=== PATIENT | female | born 2000 | race Caucasian/White ===

== ENCOUNTER 2022-01-07 16:47 | Outpatient (CLI) | payer OTHER, SELFPAY | END 2022-01-07 23:59 | disposition home or self-care (01) | LOC: LABSPEC 16:49 | PROVIDERS: PCP Orthopaedic Surgery; Visit Provider Obstetrics & Gynecology | DX: N89.8 Other specified noninflammatory disorders of vagina (principal) | CPT/HCPCS: 87070; 87205 ==

== ENCOUNTER → 2023-06-21 | Outpatient (CLI) | payer OTHER, SELFPAY ==
[2023-06-21 11:19] LABS: HIV - WCH Non-Reactive (Nonreactive); Hepatitis C Antibody Non-Reactive (Nonreactive); Syphilis Antibodies Non-reactive
[2023-06-22 05:07] LABS: HSV 1 IgG < 0.91 index (0.00-0.90); HSV 2 IgG < 0.91 index (0.00-0.90)
[2023-06-23 12:09] LABS: Chlamydia By Nucleic Acid AMP Negative (Negative); Gonococcus By Nucleic Acid AMP Negative (Negative)
[2023-06-26 21:05] LABS: HPV Reflexed? NOT INDICATED
== END | disposition home or self-care (01) ==
PROVIDERS: PCP Orthopaedic Surgery; Referring Provider Nurse Practitioner Women's Health; Visit Provider Nurse Practitioner Women's Health
DX: Z12.4 Encounter for screening for malignant neoplasm of cervix (principal); Z11.3 Encounter for screening for infections with a predominantly sexual mode of transmission; N89.8 Other specified noninflammatory disorders of vagina; Z20.2 Contact with and (suspected) exposure to infections with a predominantly sexual mode of transmission
CPT/HCPCS: 36415; 86695; 86696; 86703; 86780; 86803; 87070; 87205; 87491; 87591; 88175; G0145

== ENCOUNTER → 2025-06-05 | Outpatient (CLI) | payer OTHER, SELFPAY ==
[2025-06-05 17:13] LABS: hCG Titer Quant., Serum < 1 mIU/mL (<9 non-preg)
== END | disposition home or self-care (01) ==
PROVIDERS: PCP Orthopaedic Surgery; Visit Provider Nurse Practitioner Family
DX: N91.2 Amenorrhea, unspecified (principal)
CPT/HCPCS: 36415; 84702

== ENCOUNTER → 2025-07-01 | Outpatient (CLI) | payer OTHER, SELFPAY ==
--- NOTE | 2025-07-01 08:47 | US_ITS ---
EXAM: Right axillary sonogram. CLINICAL HISTORY: Occasional right axillary lump. COMPARISON: None TECHNIQUE: Targeted imaging of the right axilla was obtained. FINDINGS: No sonographic abnormality is seen. US/Axilla - Right IMPRESSION: No sonographic abnormality is seen. Reading Location: [facility]
--- OUTSIDE RECORDS SUMMARY | 2025-07-01 10:02 | XMS RPT_ITS | CCD ---
Author Organization 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 Rahul Pickett Primary Care Provider Dr. Rahul Pickett Referring Provider Javon RETAIL ZONE SPECIALIST, RETAIL ZONE SPECIALIST-C Loni Attending Provider Chelsea Burr MD Primary Care Provider OLARIU, NICULINA R Attending Unavailable OLARIU, NICULINA R Primary Care Unavailable SINTIA JAMISON Attending Unavailable OLARIU, NICULINA R Referring Unavailable OLARIU, NICULINA R Primary Care Unavailable OLARIU, NICULINA R Attending Unavailable OLARIU, NICULINA R Primary Care Unavailable Dr. Rahul Pickett MD Primary Care Provider Dr. Rahul Pickett MD Referring Provider Jessica RETAIL ZONE SPECIALIST-CAmrita Attending Provider Rahul Pickett Primary Care Unavailable Amrita Lopez Attending Unavailable Amrita Lopez Referring Unavailable Town Doctor, Out of Primary Care Unavailable Amrita Lopez Attending Unavailable Amrita Lopez Referring Unavailable [facility] Doctor, Out of Primary Care Unavailable Amrita Lopez Attending Unavailable Amrita Lopez Attending Unavailable Rahul Pickett Primary Care Unavailable Rahul Pickett Referring Unavailable Allergies Allergy Classification Reported Allergen(s) Allergy Type Date of Onset Reaction(s) Facility (1 source) ALLERGIES NOT ON FILE; Translations: [ALLERGIES NOT ON FILE] Propensity to adverse reactions (disorder) [facility] Medications Current Medications Medication Drug Class(es) Dates Sig (Normalized) Sig (Original) cholecalciferol 0.125 mg oral tablet (1 source) Vitamin D cholecalciferol (Vitamin D3) 125 mcg (5,000 units) tablet Take by mouth once daily. Active ergocalciferol 1.25 mg oral capsule (1 source) Provitamin D2 Compound Start: 05-08-2025 End: 06-19-2025 take 1 capsule by mouth every week ergocalciferol (Vitamin D-2) 1250 mcg (50,000 units) capsule Indications: Vitamin D deficiency Take 1 capsule (1.25 mg) by mouth 1 (one) time per week. 6 capsule 05/08/2025 06/19/2025 Active 168 hr ethinyl estradiol 0.82680 mg/hr / norelgestromin 0.08361 mg/hr transdermal system (12 sources) Progestin, Estrogen Start: 06-09-2025 apply 1 dose transdermal route every week Norelgestromin-Ethin .Estradiol (Xulane) 150-35 mcg/24 hr patch weekly Active 1 NMA TD Q7D 12 June 09, 2025 7:08am one patch td weekly, use continuously Start: 01-07-2022 End: 06-05-2025 apply 1 dose transdermal route every week Norelgestromin-Ethin.Estradiol (Xulane) 150-35 mcg/24 hr patch weekly Discontinued 1 NMA TD Q7D 12 April 05, 2024 3:20am June 05, 2025 3:24pm one patch td weekly, use continuously Start: 01-07-2022 End: 06-21-2023 apply 1 dose transdermal route every week Norelgestromin-Ethin.Estradiol (Xulane) 150-35 mcg/24 hr patch weekly Active 1 PATCH TD Q7D June 21, 2023 9:35am one patch td weekly, use continuously Beauregard (Nk) (2 sources) Start: 06-05-2025 Beauregard (Nk) A ctive June 05, 2025 12:00am tirzepatide, weight loss, (Zepbound) 2.5 mg/0.5 mL injection (1 source) Start: 05-08-2025 tirzepatide, w eight loss, (Zepbound) 2.5 mg/0.5 mL injection Indications: Obesity (BMI 35.0-39.9 without comorbidity) Inject 2.5 mg under the skin every 7 days. 4 each 1 05/08/2025 Active Completed/Discontinued Medications Medication Drug Class(es) Dates Sig (Normalized) Sig (Original) clindamycin 20 mg/ml vaginal cream (2 sources) Lincosamide Antibacterial Start: 09-11-2023 End: 2023 Clindamycin Phosphate (Cleocin) 2 % cream Discontinued 1 NMA VAGINAL AT BEDTIME 40 5 0 September 11, 2023 12:00am September 15, 2023 12:00am 2023 12:38am etonogestrel 68 mg drug implant (3 sources) Progestin Start: 12-19-2018 End: 01-10-2022 Etonogestrel (Nexplanon) 68 mg implant Discontinued 1 NMA Subdermal ONCE December 19, 2018 1:00am January 10, 2022 10:02am metroNIDAZOLE 500 mg oral tablet (6 sources) Nitroimidazole Antimicrobial Start: 06-26-2023 End: 07-03-2023 take 1 tablet by mouth twice daily Metronidazole 500 mg tablet Discontinued 500 mg PO TWICE A DAY 14 7 0 June 26, 2023 12:00am July 02, 2023 12:00am July 03, 2023 12:03am Start: 01-10-2022 End: 01-17-2022 take 1 tablet by mouth twice daily Metronidazole 500 mg tablet Discontinued 500 mg PO TWICE A DAY 14 7 0 January 10, 2022 1:00am January 16, 2022 1:00am January 17, 2022 1:03am Problems Active Problems Problem Classification Problem Date Documented Date Episodic/Chronic Anxiety disorders (6 sources) Mixed anxiety and depressive disorder; Translations: [Anxiety disorder, unspecified] Onset: 04-09-2025 04-09-2025 Chronic Contraceptive and procreative management (1 source) Encounter for contraceptive management, unspecified; Translations: [Encounter for contraceptive management, unspecified] Onset: 06-05-2025 Episodic Immunizations and screening for infectious disease (1 source) Contact with and (suspected) exposure to infections with a predominantly sexual mode of transmission; Translations: [Contact with or exposure to venereal diseases] 06-21-2023 Episodic Menstrual disorders (3 sources) Break-through bleeding; Translations: [Excessive and frequent menstruation with irregular cycle] Onset: 04-09-2025 04-09-2025 Chronic Mood disorders (7 sources) Mild major depression, single episode; Translations: [Major depressive disorder, single episode, mild] Onset: 04-09-2025 04-09-2025 Chronic Mood disorders (4 sources) Mood disorders; Translations: [Depression, unspecified] Onset: 04-09-2025 04-09-2025 Nonmalignant breast conditions (6 sources) Breast lump; Translations: [Unspecified lump in unspecified breast] Onset: 06-05-2025 06-05-2025 Episodic Comment on above: axillary Nutritional deficiencies (4 sources) Vitamin D deficiency; Translations: [Vitamin D deficiency, unspecified] Onset: 05-08-2025 05-08-2025 Chronic Other female genital disorders (1 source) Other specified noninflammatory disorders of vagina; Translations: [Other specified symptoms associated with female genital organs] 06-21-2023 Episodic Other female genital disorders (2 sources) Vaginal odor; Translations: [Other specified noninflammatory disorders of vagina] Onset: 04-09-2025 04-09-2025 Episodic Other nutritional; endocrine; and metabolic disorders (5 sources) Body mass index 30+ - obesity; Translations: [Obesity, unspecified] Onset: 04-09-2025 04-09-2025 Chronic Other nutritional; endocrine; and metabolic disorders (2 sources) Obesity, unspecified; Translations: [Obesity, unspecified] Onset: 04-09-2025 Chronic Other screening for suspected conditions (not mental disorders or infectious disease) (7 sources) Encounter for screening for malignant neoplasm of cervix; Translations: [Screening for malignant neoplasms of cervix] Onset: 05-08-2025 06-21-2023 Episodic Past or Other Problems Problem Classification Problem Date Documented Da te Episodic/Chronic Unclassified (2 sources) Onset: 04-09-2025 Resolved: 05-08-2025 04-09-2025 Viral infection (2 sources) Varicella; Translations: [Varicella without complication] Onset: 11-20-2002 04-09-2025 Episodic Results Test Name Value Interpretation Reference Range Facility Laboratory - Chemistry and C hemistry - challengeOrdered By: Amrita Lopez on 06-05-2025 HCG ( test) Ql (U) Negative [facility] Trimming Assembler Office Visit Reporton 07-17-2025 Trimming Assembler Office Visit Report [facility] [address], [address] [place] [address] OFFICE VISIT Date of Service: 06/05/25 MR#: [id number] Acct: [id number] Name: PANKAJ QUIÑONEZ Rep #: [id number] : 2000 Provider: BERTHA Oliver Age/Sex: 24/F Location[place] [facility] [place]: Signed Intake Vital Signs 06/21/23 09:29 06/05/25 15:18 06/05/25 15:25 Height 5 ft 5 in 5 ft 5 in 5 ft 5 in Weight: 228 lb 6 oz BMI 38.0 BP 102/78 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: No Is patient in pain?: No Allergies No Known Allergies Allergy (Verified 06/05/25 15:17) Medications ???Medication ???Instructions ???Recorded ???Confirmed ???Type NK 06/05/25 06/05/25 History Is last menstrual period known: No Post menopausal: No Patient : No : No Control Method: none PFSH Family History Father Diabetes Social History (Updated 06/05/25 @ 15:24 by Mirtha Beach) adopted: No number of children: 0 current occupational status: employed 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 She was previously on xulane patch; has not had refills due to her pharmacy closing. She is interested in restarting the xulane patient. She has however had unprotected since being off. When she was using the xulane patch her menses were regular--with out the patch is has been irregular. Patient reports breast lump; noticed this a couple weeks ago in right axillary region. Last PAP: 2022; normal. History of abnormal PAP: no Last mammogram: age 40 History of abnormal mammogram: n/a Colon cancer screening: age 45 Other preventative health care screenings: Chelsea Burr--Kenna; PCP Female Reproductive History Last Menstrual Period: 03/26/25 Questions: metorrhagia: No, sexually active: Yes, dyspareunia: No and PCB: No ROS Const Constitutional: Denies chills, fatigue, fever(s), headache(s) or weight loss Eyes Eyes: Denies change in vision ENT ENT: Denies dizziness Resp Resp: Denies cough GI GI: Denies abdominal pain, constipation or nausea : Denies difficulty voiding, dysuria, hematuria, nipple discharge, pelvic pain, prolapse symptoms, urinary incontinence, vaginal discharge, vaginal dryness, vaginal odor or vaginal pruritus Skin Skin/Breast: Denies alopecia, rash, breast mass, breast pain, breast skin changes or nipple discharge Neuro Neuro: Denies dizziness Psych Psych: Denies anxiety or depression Endo Endo: Denies cold intolerance, excessive sweating or heat intolerance Exam Const General: cooperative, healthy appearing, no acute distress and well developed Orientation: alert, oriented to person and oriented to place HENCT Head: normal to inspection Neck Neck: normal visual inspection Thyroid: thyroid normal Lymphatic: no lymphadenopathy noted Chest Breast inspection: normal inspection of the breasts and normal inspection of the axillae Breast palpation: normal palpation of the breasts, normal palpation of the axillae and no axillary lymphadenopathy Resp Effort Inspection: normal respiratory effort GI Palpation: soft, no masses and nontender Rectal Exam: deferred External Female Exam: normal external appearance and normal appearance of the urethra Urethra: normal appearance of the urethra and normal palpation Speculum Exam - Vagina: normal appearance of the vagina and normal vaginal discharge Speculum Exam - Cervix: normal appearance of the cervix Bimanual Exam- Vagina Uterus: normal bimanual exam, uterine size normal, uterine shape normal and non-tender Bimanual Exam- Adnexa, other: normal adnexae, no masses, normal and non-tender Pelvic Support: normal Neuro General: patient alert and patient oriented x3 Psych Affect: normal affect Results POC Urine Office , Urine Negative Last Edit by Mirtha Beach on 06/05/25 15:28 Coding Level of Care Code Established Pt Off vis,est,prev 18-39yrs Patient Type Established Diagnoses Encounter for routine gynecological examination Z01.419 Breast lump N63.0 Assessment and Plan Assessment and Plan (1) Encounter for routi (more content not included)... Normal [facility] Serum human chorionic gonado tropin detection for pregnancyOrdered By: Amrita Lopez on 06-05-2025 HCG ( test) Ql < 1 mIU/mL <9 [facility] Comment on above: Gestational Age0.2-1 Week: 5-50 mIU/mL1-2 Weeks: 50-500 mIU/mL2-3 Weeks: 100-5000 mIU/mL3-4 Weeks: 500-10,000 mIU/mL4-5 Weeks:1000-50,000 mIU/mL5-6 Weeks: 10,000-100,000 mIU/mL6-8 Weeks: 15,000-200,000 mIU/mL2-3 Months:10,000-100,000 mIU/mL hCG Titer Quant., Serumon HCG QUANT. < 1 Normal <9 non-preg [facility] Comment on above: Result Comment: Gest ational Age 0.2-1 Week: 5-50 mIU/mL 1-2 Weeks: 50-500 mIU/mL 2-3 Weeks: 100-5000 mIU/mL 3-4 Weeks: 500-10,000 mIU/mL 4-5 Weeks:1000-50,000 mIU/mL 5-6 Weeks: 10,000-100,000 mIU/mL 6-8 Weeks: 15,000-200,000 mIU/mL 2-3 Months:10,000-100,000 mIU/mL Performed By: #### L 700.8000 #### [facility] [address] [place], [place], [id number] Cervical or vagninal specime n microscopic examination by cytology stain (reported asOrdered By: Loni Alejandro on 06-21-2023 Cytology report Cyto stain Doc (Cvx/Vag) Comment . [facility] Comment on above: The Pap smear is a s creening test designed to aid in thedetection of premalignant and malignant conditions of theuterine cervix. It is not a diagnostic procedure andshould not be used as the sole means of detecting cervicalcancer. Both false-positive and false-negative reports dooccur. Chlamydia trachomatis rRNA d etection by probe and target amplification methodOrdered By: Loni Alejandro on 06-21-2023 C. trachomatis rRNA ABIGAIL+probe Ql (Unsp spec) Negative Negative [facility] Gram stain for investigation of transfusion reactionOrdered By: Loni Alejandro on 06-21-2023 Microscopic observation Gram stain Nom (Unsp spec) [facility] HIV 1 and HIV-2 antibody ass ay with HIV-1 p24 antigen detectionOrdered By: Loni Alejandro on 06-21-2023 HIV 1+2 Ab+HIV1 p24 Ag IA Ql Non-Reactive Nonreactive [facility] Laboratory - CytologyOrdered By: Loni Alejandro on 06-21-2023 Consumer Insight Analyst Cyto stain Nom (Cvx/Vag) [ID] Comment . [facility] Comment on above: Marycarmen Castellano, Cytot echnologist (ASCP) Laboratory - Microbiology an d Antimicrobial susceptibilityOrdered By: Loni Alejandro on 06-21-2023 N. gonorrhoeae DNA ABIGAIL+probe Ql (Unsp spec) Negative Negative [facility] Comment on above: Performed at: =G - [facility] [address] [id number] Director: Gabbi Merritt MD, Phone: [phone] Laboratory - Miscellaneous t estsOrdered By: Loni Alejandro on 06-21-2023 Service comment (Unsp spec) [Interp] Comment . [facility] Comment on above: This liquid based Th inPrep(R) pap test was screened withthe use of an image guided system. Service comment (Unsp spec) [Interp] . . [facility] No Panel InformationOrdered By: Loni Alejandro on 06-21-2023 Human Papillomavirus Screen Comment . [facility] Comment on above: The HPV DNA reflex c teodora were not met with this specimenresult therefore, no HPV testing was performed.Performed at: - [facility] [address] [id number] Director: Gabbi Merritt MD, Phone: [phone] Pathology report final diagnosis Narrative Comment . [facility] Comment on above: NEGATIVE FOR INTRAEP ITHELIAL LESION OR MALIGNANCY. Hepatitis C Antibody Non-Reactive Nonreactive [facility] Comment on above: Non Reactive: < 0.8 Equivocal: >/= 0.8 to < 1.0 Reactive: >/= 1.0The CDC recommends that a reactive/equivocal HCV antibody result be followed up by the HCV Nucleic Acid Amplificationtest (010407) Herpes Simplex Virus I IgG Antibody < 0.91 index 0.00-0.90 [facility] Comment on above: Negative <0.91 Equiv ocal 0.91 - 1.09 Positive >1.09 Note: Negative indicates no antibodies detected to HSV-1. Equivocal may suggest early infection. If clinically appropriate, retest at later date. Positive indicates antibodies detected to HSV-1. Serum Treponema species anti body detectionOrdered By: Loni Alejandro on 06-21-2023 Treponema sp Ab Ql (S) Non-Reactive [facility] Serum herpes simplex virus 2 antibody assay by immunoassay (units/volume)Ordered By: Loni Alejandro on 06-21-2023 HSV 2 Ab IA Qn (S) < 0.91 index 0.00-0.90 [facility] Comment on above: Negative <0.91 Equiv ocal 0.91 - 1.09 Positive >1.09 Note: Negative indicates no HSV-2 antibodies detected. Positive indicates HSV-2 antibodies detected. Equivocal and low positive HSV-2 screens (Index 0.91-5.00) may be false positive and are reflexed to supplemental testing in accordance with CDC guidelines.Performed at: [facility] [id number] Director: Morteza Adorno PhD, Phone: [phone] Thin prep Papanicolaou smear with manual screeningOrdered By: Loni Alejandro on 06-21-2023 Genital Culture Gardnerella vaginalis [facility] C. trachomatis/GC PCR Panel on GeneXperton 03-12-2021 C. trachomatis/GC PCR Panel on GeneXpert Reason for preventing automatic release->Other Is this specimen being sent to an external lab?->No Release to patient->Manual release only 60354&Urine-First Void^^^Urine&Urine C. trachomatis PCR on GeneXpert: NEGATIVE-Chlamydia trachomatis DNA: NOT DETECTED. Source: [facility] Collected: 03/12/21 14:33 Site: Urine Received : 03/12/21 20:20 C. trachomatis PCR on GeneXpert FINAL 03/13/21 10:24 NEGATIVE-Chlamydia trachomatis DNA: NOT DETECTED. - GC PCR on GeneXpert FINAL 03/13/21 10:24 NEGATIVE-Neisseria gonorrhea DNA: NOT DETECTED. - Method: DNA detection by RT PCR on a GeneXpert analyzer. - NOTE: This Amplified DNA Assay should not be used for the evaluation of suspected sexual abuse or for other medico-legal indications. - Screening urine specimens for Chlamydia trachomatis and Neisseria gonorrhoeae using nucleic acid amplification is an accurate and sensitive method compared to standard techniques of detection of these pathogens. Because the pathogen is diluted in urine, it is somewhat less sensitive than a direct swab specimen evaluated by nucleic acid amplification techniques. Normal [facility] Comment on above: Performed By: #### C [facility] #### [place] [address] Progress Noteon 03-12-2021 Research Psychologist Authentication Interface Message Text Patient ID: Pankaj Quiñonez V is a 20 y.o. female. Her chief complaint(s) include: Urinary Frequency (has been ongoing, happens a lot if she doesnt urinate after sex, seen clinic at [facility], no bacteria. taking AZO otc. no burning. is spotting if there is blood in urine sample.) and Immunizations Assessment 1. Dysuria 2. Symptoms involving urinary system Plan Pankaj was seen today for urinary frequency and immunizations. Diagnoses and all orders for this visit: Dysuria - Cancel: POCT urinalysis dipstick - POCT urine HCG - Urine culture - C.trachomatis/GC PCR Panel Symptoms involving urinary system - POCT urinalysis dipstick Return for Well Visit and as needed. Will send urine for culture and G & C. Will determine follow up after results available. Discussed if all negative testing if symptoms persist will refer to urology. Encouraged Pankaj to call with any concerns. Subjective HPI Comments: Frequency urgency tingling feeling with voiding; has been happening since Monday. Monday urine culture negative for UTI. No G/C testing completed. No condom use. Partner does not have symptoms. She is accompanied by her mother. Independent history obtained from mother. Dysuria The onset has been acute. The duration has been 6 days. The pattern is persistent. The course is improving. The patient's symptoms have included change in urine color, urinary frequency, urinary hesitancy and urinary urgency. The patient's symptoms have included no chills, no fever, no nausea, no vomiting, no change in urine odor, no decreased urination and no urinary burning. Weight loss: urine was cloudy on Monday. The contributing factors have included sexual activity. The contributing factors have not included increased fluid intake. The patient's past medical history is positive for vesicoureteral reflux and urinary tract infection. Review of Systems Genitourinary: Positive for dysuria. Objective Vital Signs 03/12/21 1404 Temp: 36.7 C (98.1 F) TempSrc: Temporal Weight: 73.8 kg There is no height or weight on file to calculate BMI. Physical Exam Constitutional: She appears well. She is active. No distress. HENT: Head: Atraumatic. Ears: Right Ear: Tympanic membrane and external ear normal. Left Ear: Tympanic membrane and external ear normal. Nose: No nasal discharge. Mouth/Throat: Mucous membranes are moist. No pharynx erythema. Eyes: Conjunctivae are normal. Right eyelid exhibits no discharge. Left eyelid exhibits no discharge. Right conjunctiva is not injected. Left conjunctiva is not injected. Neck: Neck supple. Cardiovascular: Normal rate, regular rhythm and S1 normal. Heart murmur not heard. Pulmonary/Chest: Effort normal and breath sounds normal. There is normal air entry. Air movement is not decreased. Abdominal: Soft. Bowel sounds are normal. She exhibits distension. There is no abdominal tenderness. There is no rebound and no guarding. Genitourinary: Did not examine. Musculoskeletal: Cervical back: Normal range of motion and neck supple. Lymphadenopathy: No right anterior and posterior cervical adenopathy present. No left anterior and posterior cervical adenopathy present. Neurological: She is alert. Skin: Skin is warm. Findings: No rash. Last Result POCT urine HCG Collection Time: 03/12/21 2:36 PM Result Value Ref Range hCG Urine POCT Negative Negative Control Line *Present Clear Background *Present Lot Number [id number] POCT urinalysis dipstick Collection Time: 03/12/21 2:21 PM Result Value Ref Range POCT, Leukocytes, Urine 1+ (Small) (A) Negative POCT Nitrite, Urine Negative Negative POCT Protein, Urine Negative Negative - Trace mg/dl POCT Urine pH 6.0 5.0 - 8.0 pH POCT Blood, Urine Negative Negative POCT Urine Specific Danese 1.025 1.005 - 1.030 POCT Ketones, Urine Trace (5mg/dL) (A) Negative mg/dl POCT Glucose, Urine Negative Negative mg/dl Normal [facility] Urine Cultureon 03-12-2021 Bacteria identified Cx Nom (U) Is this specimen being sent to an external lab?->No Release to patient->Automatic 13056&Urine-Midstream^ ^^Urine&Urine Urine Culture: Gram negative ilda Source: URNMD Collected: 03/12/21 14:33 Site: Urine Received : 03/12/21 20:20 Urine Culture FINAL 03/14/21 09:05 10,000 - 50,000 CFU/ml of Normal Skin/urogenital sherman present <10,000 CFU/ml Gram negative ilda If further work-up is needed, providers should call the Microbiology lab within 3 days. Normal [facility] Comment on above: Performed By: #### U BÁRBARA #### [place] [id number] Progress Noteon 06-02-2020 Research Psychologist Authentication Interface Message Text Patient ID: Pankaj Quiñonez V is a 19 y.o. female. Her chief complaint(s) include: Contraception (pt states that she has constant bleeding, would like to discuss different/more BC) Assessment 1. Breakthrough bleeding on Nexplanon Plan Pankaj was seen today for contraception. Diagnoses and all orders for this visit: Breakthrough bleeding on Nexplanon - estradiol (ESTRACE) 1 MG tablet; Take 2 Tabs (2 mg) by mouth daily for 14 days Discussed different BC options including Depo, IUDs and the patch. Told pt to call if Estrace does not stop the breakthrough bleeding and she would like to trial something different. Return if symptoms worsen or fail to improve. Subjective HPI Comments: Had implant BC placed over a year ago and it worked well with no SE including typically not having any periods. Over the last several months patients has been experiencing on and off again breakthrough bleeding. She is unaccompanied. Contraception The patient is here today regarding a concern with current method. status: not . The side effects includes: break through bleeding. Primary Care Review of Systems Objective Vital Signs 06/02/20 0800 BP: 115/67 Pulse: 66 Weight: 70.5 kg Height: 170.6 cm Body mass index is 24.22 kg/m . Physical Exam Constitutional: She appears well. She is active. No distress. HENT: Head: Atraumatic. Mouth/Throat: Mucous membranes are moist. Eyes: Conjunctivae are normal. Cardiovascular: Normal rate and regular rhythm. Heart murmur not heard. Pulmonary/Chest: Breath sounds normal. There is normal air entry. Neurological: She is alert. Vitals reviewed: Blood pressure 115/67, pulse 66, height 170.6 cm, weight 70.5 kg. Normal [facility] CNCOon 02-13-2018 CN[facility] Letter [facility], [address] [address]Qbzfy: [phone]: [phone] 2017RE: Pankaj [id number] [facility] [id number] Parent/Guardian of Pankaj,We have tried to contact you in regards to your child'Coty for Routine PhysicalOur efforts to reach you have been unsuccessful. Please call [phone] to coordinate your child's plan of care. Thank you and we lookforward to talking with you.Sincerely,[facility] Vital Signs Date Time Vital Sign Value Performing Clinician Facility 06-05-2025 15:25-0400 Body height 165.[address] Rahul Pickett MD Work Phone: [facility] 06-05-2025 15:18-0400 Body mass index (BMI) [Ratio] 38 kg/m2 Dr. Rahul Pickett MD Work Phone: [facility] 06-05-2025 15:18-040 Body weight 103.[address] Rahul Pickett MD Work Phone: [facility] 06-05-2025 15:18-0400 Diastolic blood pressure 78 mm[Hg] Dr. Rahul Pickett MD Work Phone: [facility] 06-05-2025 15:18-0400 Systolic blood pressure 102 mm[Hg] Dr. Rahul Pickett MD Work Phone: [facility] 05-08-2025 09:23-0400 Body height 170.2 cm Chelsea Burr MD Work Phone: 1(747)725-374808 [place] [address] 05-08-2025 09:23-0400 Body mass index (BMI) [Ratio] 35.73 kg/m2 Chelsea Burr MD Work Phone: 8(719)782-525908 [place] [address] 05-08-2025 09:23-0400 Body temperature 97.3 [degF] Chelsea Burr MD Work Phone: 4(608)840-077908 [place] [address] 05-08-2025 09:23-0400 Body weight 103.51 kg Chelsea Burr MD Work Phone: 1(147)906-011508 [place] [address] 05-08-2025 09:23-0400 Diastolic blood pressure 66 mm[Hg] Chelsea Burr MD Work Phone: 7(275)043-029408 [place] [address] 05-08-2025 09:23-0400 Respiratory rate 16 /min Chelsea Burr MD Work Phone: 8(734)248-471108 [place] [address] 05-08-2025 09:23-0400 SaO2% (BldA) [Mass fraction] 98 % Chelsea Burr MD Work Phone: 3(107)666-576608 [place] [address] 05-08-2025 09:23-0400 Systolic blood pressure 120 mm[Hg] Chelsea Burr MD Work Phone: 7(072)266-245008 [place] [address] 04-09-2025 09:15-0400 Body height 170.2 cm Chelsea Burr MD Work Phone: 8(816)693-149708 [place] [address] 04-09-2025 09:15-0400 Body mass index (BMI) [Ratio] 36.05 kg/m2 Chelsea Burr MD Work Phone: 6(768)766-560942 [place] [address] 04-09-2025 09:15-0400 Body temperature 97 [degF] Chelsea Burr MD Work Phone: 8(005)202-413908 [place] [address] 04-09-2025 09:15-0400 Body weight 104.42 kg Chelsea Burr MD Work Phone: 4(817)774-965808 [place] [address] 04-09-2025 09:15-0400 Diastolic blood pressure 64 mm[Hg] Chelsea Burr MD Work Phone: 5(117)470-243308 [place] [address] 04-09-2025 09:15-0400 Heart rate 84 /min Chelsea Burr MD Work Phone: 3(789)960-224008 [place] [address] 04-09-2025 09:15-0400 Respiratory rate 18 /min Chelsea Burr MD Work Phone: 7(198)067-170942 [place] [address] 04-09-2025 09:15-0400 SaO2% (BldA) [Mass fraction] 98 % Chelsea Burr MD Work Phone: 9(819)302-288542 [place] [address] 04-09-2025 09:15-0400 Systolic blood pressure 110 mm[Hg] Chelsea Burr MD Work Phone: [facility] 06-21-2023 09:29-0400 Body height 165.[address] Rahul Pickett Work Phone: [facility] 06-21-2023 09:20-0400 Body mass index (BMI) [Ratio] 32.8 kg/m2 Dr. Rahul Pickett Work Phone: [facility] 06-21-2023 09:20-0400 Body weight 89.[address] Rahul Pickett Work Phone: [facility] 06-21-2023 09:20-0400 Diastolic blood pressure 82 mm[Hg] Dr. Rahul Pickett Work Phone: [facility] 06-21-2023 09:20-0400 Systolic blood pressure 132 mm[Hg] Dr. 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 Rahul Pickett MD Work Phone: -[facility] Start: 06-05-2025 End: 06-05-2025 ambulatory Rahul Pickett Facility:[facility] Start: 05-08-2025 End: 05-08-2025 Office outpatient visit 25 minutes Chelsea Burr MD Work Phone: [facility] Comment on above: Obesity (BMI 35.0-39 .9 without comorbidity) (Primary Dx); Vitamin D deficiency; Current mild episode of major depressive disorder without prior episode; Abnormal cortisol level Start: 05-08-2025 End: 05-08-2025 ambulatory [facility] Ambulatory Start: 04-09-2025 End: 04-09-2025 ambulatory [facility] Ambulatory Start: 04-09-2025 End: 04-09-2025 ambulatory [facility] Start: 04-09-2025 End: 04-09-2025 Encounter for general adult medical examination without abnormal findings [facility] Start: 04-09-2025 End: 04-09-2025 Initial preventive medicine new pt age 18-39yrs Chelsea Burr MD Work Phone: [facility] Comment on above: Current mild episode of major depressive disorder without prior episode (Primary Dx); Anxiety and depression; Obesity (BMI 35.0-39.9 without comorbidity); Anxiety; Annual physical exam Start: 04-09-2025 End: 04-09-2025 Patient encounter procedure Chelsea Burr MD Work Phone: [facility] Work Phone: Start: 06-21-2023 End: 06-21-[address] Rahul Pickett Work Phone: [facility] Work Phone: Start: 06-21-2023 End: 06-21-[address] Rahul Pickett Work Phone: [facility] Work Phone: Start: 06-05-2023 End: 06-06-2023 ambulatory [facility] Procedures Date Procedure Procedure Detail Performing Clinician Start: 06-21-2023 Cytopathology proced ure, preparation of smear, genital source Dr. Rahul Pickett Work Phone: Start: 06-21-2023 Investigation of transfusion reaction Dr. Rahul Pickett Work Phone: Plan of Treatment Date Care Activity Detail Author Start: 2050 Zoster Vaccines (1 of 2) Zoste r Vaccines (1 of 2) [facility] Start: 12-02-2031 DTaP/Tdap/Td Vaccine s (8 - Td or Tdap) DTaP/Tdap/Td Vaccines (8 - Td or Tdap) [facility] Start: 04-10-2026 Yearly Adult Physical Yearly Adult P hysical [facility] Start: 07-21-2025 Influenza vaccination Influenz a Vaccine (Season Ended) [facility] Start: 06-05-2025 Choriogonadotropin ( test) [Presence] in Serum or Plasma [facility] Start: 05-08-2025 End: 05-08-2026 Cortisol [Mass/volume] in Serum or Plasma Cortisol Lab Routine Abnormal cortisol level Expected: 05/08/2025 (Approximate), Expires: 05/08/2026 [facility] Service [facility] Work Phone: Comment on above: Expected: 05/08/2025 (Approximate), Expires: 05/08/2026 Start: 05-08-2025 End: 05-08-2026 Insulin [Units/volume] in Serum or Plasma --fasting Insulin, Fasting Lab Routine Obesity (BMI 35.0-39.9 without comorbidity) Expected: 05/08/2025 (Approximate), Expires: 05/08/2026 [facility] Work Phone: Comment on above: Expected: 05/08/2025 (Approximate), Expires: 05/08/2026 Start: 05-08-2025 End: 05-08-2026 Lipid 1996 panel - Serum or Plasma Lipid Panel Lab Routine Abnormal cortisol level Expected: 05/08/2025 (Approximate), Expires: 05/08/2026 [facility] Work Phone: Comment on above: Expected: 05/08/2025 (Approximate), Expires: 05/08/2026 Start: 04-09-2025 End: 04-09-2026 25-hydroxyvitamin D3 [Mass/volume] in Serum or Plasma Vitamin D 25-Hydroxy,Total (for eval of Vitamin D levels) Lab Routine Current mild episode of major depressive disorder without prior episode Expected: 04/09/2025 (Approximate), Expires: 04/09/2026 [facility] Work Phone: Comment on above: Expected: 04/09/2025 (Approximate), Expires: 04/09/2026 Start: 04-09-2025 End: 04-09-2026 Basic metabolic 2000 panel - Serum or Plasma Basic metabolic panel Lab Routine Current mild episode of major depressive disorder without prior episode Expected: 04/09/2025 (Approximate), Expires: 04/09/2026 [facility] Work Phone: Comment on above: Expected: 04/09/2025 (Approximate), Expires: 04/09/2026 Start: 04-09-2025 End: 04-09-2026 CBC panel - Blood by Automated count CBC Lab Routine Current mild episode of major depressive disorder without prior episode Expected: 04/09/2025 (Approximate), Expires: 04/09/2026 [facility] Work Phone: Comment on above: Expected: 04/09/2025 (Approximate), Expires: 04/09/2026 Start: 04-09-2025 End: 04-09-2026 Cobalamin (Vitamin B12) [Mass/volume] in Serum or Plasma Vitamin B12 level Lab Routine Current mild episode of major depressive disorder without prior episode Expected: 04/09/2025 (Approximate), Expires: 04/09/2026 [facility] Work Phone: Comment on above: Expected: 04/09/2025 (Approximate), Expires: 04/09/2026 Start: 04-09-2025 End: 04-09-2026 Comprehensive metabolic 2000 panel - Serum or Plasma Comprehensive metabolic panel Lab Routine Current mild episode of major depressive disorder without prior episode Expected: 04/09/2025 (Approximate), Expires: 04/09/2026 [facility] Work Phone: Comment on above: Expected: 04/09/2025 (Approximate), Expires: 04/09/2026 Start: 04-09-2025 End: 04-09-2026 Cortisol [Mass/volume] in Serum or Plasma Cortisol Lab Routine Current mild episode of major depressive disorder without prior episode Expected: 04/09/2025 (Approximate), Expires: 04/09/2026 [facility] Service Area Work Phone: Comment on above: Expected: 04/09/2025 (Approximate), Expires: 04/09/2026 Start: 04-09-2025 End: 04-09-2026 Folate [Mass/volume] in Serum or Plasma Folate Lab Routine Current mild episode of major depressive disorder without prior episode Expected: 04/09/2025 (Approximate), Expires: 04/09/2026 [facility] Work Phone: Comment on above: Expected: 04/09/2025 (Approximate), Expires: 04/09/2026 Start: 04-09-2025 End: 04-09-2026 Insulin [Units/volume] in Serum or Plasma --fasting Insulin, Fasting Lab Routine Obesity (BMI 35.0-39.9 without comorbidity) Expected: 04/09/2025 (Approximate), Expires: 04/09/2026 [facility] Work Phone: Comment on above: Expected: 04/09/2025 (Approximate), Expires: 04/09/2026 Start: 04-09-2025 End: 04-09-2026 Lipid 1996 panel - Serum or Plasma Lipid Panel Lab Routine Annual physical exam Expected: 04/09/2025 (Approximate), Expires: 04/09/2026 [facility] Work Phone: Comment on above: Expected: 04/09/2025 (Approximate), Expires: 04/09/2026 Start: 04-09-2025 End: 04-09-2026 Thyrotropin [Units/volume] in Serum or Plasma TSH Lab Routine Current mild episode of major depressive disorder without prior episode Expected: 04/09/2025 (Approximate), Expires: 04/09/2026 [facility] Work Phone: Comment on above: Expected: 04/09/2025 (Approximate), Expires: 04/09/2026 Start: 04-09-2025 End: 04-09-2026 Tsh With Reflex To Free T4 If Abnormal Tsh With Reflex To Free T4 If Abnormal Lab Routine Current mild episode of major depressive disorder without prior episode Expected: 04/09/2025 (Approximate), Expires: 04/09/2026 [facility] Work Phone: Comment on above: Expected: 04/09/2025 (Approximate), Expires: 04/09/2026 Start: 04-09-2025 End: 04-09-2026 Urinalysis microscopic panel - Urine Qualitative by Automated Microscopic Only, Urine Lab Routine Current mild episode of major depressive disorder without prior episode Expected: 04/09/2025 (Approximate), Expires: 04/09/2026 [facility] Work Phone: Comment on above: Expected: 04/09/2025 (Approximate), Expires: 04/09/2026 Start: 07-21-2024 COVID-19 Vaccine ( season) COVID-19 Vaccine ( season) [facility] Start: 2021 Screening for malign ant neoplasm of cervix [facility] Start: 2018 Diabetes mellitus screening Diabetes Screening [facility] Start: 2018 Hepatitis C screening Hepatitis C Sc reening [facility] Start: 2013 Varicella vaccination Varicell a Vaccines (1 of 2 - 13+ 2-dose series) [facility] Start: 2000 HIV screening HIV Screening [facility] Start: 2000 Lipid panel Lipid Panel [facility] Start: 2000 Yearly Adult Physical Yearly Adult P hysical [facility] MG Breast - bilatera l Diagnostic [facility] Breast [facility] Immunizations Immunization Date Immunization Notes Care Provider Fa cility 12-02-2021 tetanus toxoid, redu alejandra diphtheria toxoid, and acellular pertussis vaccine, adsorbed Chelsea Burr MD Work Phone: [facility] Work Phone: 09-12-2018 meningococcal polysaccharide (groups A, C, Y and W-135) diphtheria toxoid conjugate vaccine (MCV4P) Chelsea Burr MD Work Phone: [facility] 06-16-2016 hepatitis A vaccine, pediatric/adolescent dosage, 2 dose schedule Chelsea Burr MD Work Phone: [facility] 06-16-2016 Human Papillomavirus 9-valent vaccine Chelsea Burr MD Work Phone: [facility] 08-19-2015 hepatitis A vaccine, pediatric/adolescent dosage, 2 dose schedule Chelsea Burr MD Work Phone: [facility] 08-19-2015 Human Papillomavirus 9-valent vaccine Chelsea Burr MD Work Phone: [facility] 11-16-2011 influenza virus vacc ine, live, attenuated, for intranasal use Chelsea Burr MD Work Phone: [facility] Work Phone: 11-16-2011 Meningococcal, MCV4, unspecified conjugate formulation(groups A, C, Y and W-135) Chelsea Burr MD Work Phone: [facility] Work Phone: 11-16-2011 tetanus toxoid, redu alejandra diphtheria toxoid, and acellular pertussis vaccine, adsorbed Chelsea Burr MD Work Phone: [facility] Work Phone: 11-16-2011 influenza virus vacc ine, unspecified formulation Chelsea Burr MD Work Phone: [facility] Work Phone: 09-28-2005 diphtheria, tetanus toxoids and acellular pertussis vaccine Chelsea Burr MD Work Phone: [facility] 09-28-2005 measles, mumps and rubella virus vaccine Chelsea Burr MD Work Phone: [facility] Work Phone: 09-28-2005 poliovirus vaccine, inactivated Chelsea Burr MD Work Phone: [facility] Work Phone: 10-15-2003 influenza virus vacc ine, split virus (incl. purified surface antigen) Chelsea Burr MD Work Phone: [facility] Work Phone: 11-20-2002 varicella virus vaccine Bailey Burr MD Work Phone: [facility] Work Phone: 03-11-2002 diphtheria, tetanus toxoids and acellular pertussis vaccine Chelsea Burr MD Work Phone: [facility] Work Phone: 03-11-2002 haemophilus influenz ae type b vaccine, PRP-T conjugate Chelsea Burr MD Work Phone: [facility] Work Phone: 03-11-2002 measles, mumps and rubella virus vaccine Chelsea Burr MD Work Phone: [facility] Work Phone: 03-11-2002 poliovirus vaccine, inactivated Chelsea Burr MD Work Phone: [facility] Work Phone: 10-26-2001 hepatitis B vaccine, pediatric or pediatric/adolescent dosage Chelsea Burr MD Work Phone: [facility] Work Phone: 10-26-2001 pneumococcal conjuga te vaccine, 7 valent Chelsea uBrr MD Work Phone: [facility] Work Phone: 07-17-2001 hepatitis B vaccine, pediatric or pediatric/adolescent dosage Chelsea Burr MD Work Phone: [facility] Work Phone: 07-17-2001 pneumococcal conjuga te vaccine, 7 valent Chelsea Burr MD Work Phone: [facility] Work Phone: 04-24-2001 diphtheria, tetanus toxoids and acellular pertussis vaccine Chelsea Burr MD Work Phone: [facility] Work Phone: 04-24-2001 haemophilus influenz ae type b vaccine, PRP-T conjugate Chelsea Burr MD Work Phone: [facility] Work Phone: 04-24-2001 poliovirus vaccine, inactivated Chelsea Burr MD Work Phone: [facility] Work Phone: 02-22-2001 diphtheria, tetanus toxoids and acellular pertussis vaccine Chelsea Burr MD Work Phone: [facility] Work Phone: 02-22-2001 haemophilus influenz ae type b vaccine, PRP-T conjugate Chelsea Burr MD Work Phone: [facility] Work Phone: 01-04-2001 pneumococcal conjuga te vaccine, 7 valent Chelsea Burr MD Work Phone: [facility] Work Phone: 01-04-2001 poliovirus vaccine, inactivated Chelsea Burr MD Work Phone: [facility] Work Phone: 2000 diphtheria, tetanus toxoids and acellular pertussis vaccine Chelsea Burr MD Work Phone: [facility] Work Phone: 2000 haemophilus influenz ae type b vaccine, PRP-T conjugate Chelsea Burr MD Work Phone: [facility] Work Phone: 2000 hepatitis B vaccine, pediatric or pediatric/adolescent dosage Chelsea Burr MD Work Phone: [facility] Work Phone: Payers Date Payer Category Payer Self-pay [id number] 2025 Unknown [id number] 2024 Unknown [facility] [id number] 2024 Unknown [id number] 2000 Unknown [id number] 2000 Unknown [id number] 2000 Unknown [id number] 4 Unknown [id number] Unknown [id number] Unknown [id number] Unknown [id number] Unknown [id number] Social History Date Type Detail Facility Start: 06-21-2023 Tobacco smoking stat us NDIS Unknown if ever smoked [facility] Start: 2000 Sex Assigned At Female [facility] Start: 04-09-2025 End: 06-05-2025 Tobacco smoking status NHIS Never smoked tobacco [facility] Work Phone: Start: 04-09-2025 Tobacco use and exposure User of smokeless tobacco [facility] Work Phone: Start: 04-09-2025 End: 05-08-2025 Alcoholic beverage intake Current drinker of alcohol (finding) [facility] Work Phone: Start: 04-09-2025 End: 05-08-2025 History of Social function [facility] Work Phone: Start: 04-09-2025 End: 05-08-2025 Tobacco use panel [facility] Work Phone: Start: 04-09-2025 Alcohol Comment social [facility] Work Phone: Start: 2000 Sex assigned at Not on file [facility] Work Phone: Start: 03-30-2025 End: 04-09-2025 Exposure to SARS-CoV-2 (event) Not sure [facility] Functional Status Date Assessment Result Facility 05-08-2025 Patient Health Quest ionnaire 2 item (PHQ-2) [Reported] [facility] Work Phone: 04-09-2025 Patient Health Quest ionnaire 2 item (PHQ-2) [Reported] [facility] Work Phone: 04-09-2025 PHQ-9 quick depressi on assessment panel [Reported.PHQ] [facility] Work Phone: [facility] Work Phone: Clinical Notes 05-01-2020 to 06-05-2025 Note Date & Type Note Facility 06-05-2025 Evaluation note Diagnosis Onset Date Resolution Breast lump acute June 05 3:16pm Encounter for routine gynecological examination noneactive June 05, 2025 3:16pm [facility] Work Phone: 1(359) 891-690407-17-2025 Progress [facility] [address], [address] [place] [address] OFFICE VISIT Date of Service: 06/05/25 MR#: [id number] Acct: [id number] Name: PANKAJ QUIÑONEZ Rep #: [id number] : 2000 Provider: BERTHA Lopez Age/Sex: 24/F [place] [facility] [place]: Signed Intake Vital Signs 06/21/23 09:29 06/05/25 15:18 06/05/25 15:25 Height 5 ft 5 in 5 ft 5 in 5 ft 5 in Weight: 228 lb 6 oz BMI 38.0 BP 102/78 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: No Is patient in pain?: No Allergies No Known Allergies Allergy (Verified 06/05/25 15:17) Medications ?Medication ?Instructions ?Recorded ?Confirmed ?Type NK 06/05/25 06/05/25 History Is last menstrual period known: No Post menopausal: No Patient : No : No Control Method: none PFSH Family History Father Diabetes Social History (Updated 06/05/25 @ 15:24 by Mirtha Beach) adopted: No number of children: 0 current occupational status: employed 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 She was previouslyon xulane patch; hasnot had refills due to her pharmacy closing. She is interested in restarting the xulane patient. She has however had unprotected since being off. When she was using the xulane patch her menses were re gular--with out the patch is has been irregular. Patient reports breast lump; noticed this a couple weeks ago in right axillary region. Last PAP: 2022; normal. History of abnormal PAP: no Last mammogram: age 40 History of abnormal mammogram: n/a Colon cancer screening: age 45 Other preventative health care screenings: Chelsea Burr--Kenna; PCP Female Reproductive History Last Menstrual Period: 03/26/25 Questions: metorrhagia: No, sexually active: Yes, dyspareunia: No and PCB: No ROS Const Constitutional: Denies chills, fatigue, fever(s), headache(s) or weight loss Eyes Eyes: Denies change in vision ENT ENT: Denies dizziness Resp Resp: Denies cough GI GI: Denies abdominal pain, constipation or nausea : Denies difficulty voiding, dysuria, hematuria, nipple discharge, pelvic pain, prolapse symptoms, urinary incontinence, vaginal discharge, vaginal dryness, vaginal odor or vaginal pruritus Skin Skin/Breast: Denies alopecia, rash, breast mass, breast pain, breast skin changes or nipple discharge Neuro Neuro: Denies dizziness Psych Psych: Denies anxiety or depression Endo Endo: Denies cold intolerance, excessive sweating or heat intolerance Exam Const General: cooperative, healthy appearing, no acute distress and well developed Orientation: alert, oriented to person and oriented to place [facility] Head: normal to inspection Neck Neck: normal visual inspection Thyroid: thyroid normal Lymphatic: no lymphadenopathy noted Chest Breast inspection: normal inspection of the breasts and normal inspection of theaxillae Breast palpation: normal palpation of the breasts, normal palpation of the axillae and no axillary lymphadenopathy Resp Effort & Inspection: normal respiratory effort GI Palpation: soft, no masses and nontender Rectal Exam: deferred External Female Exam: normal external appearance and normal appearance of the urethra Urethra: normal appearance of the urethra and normal palpation Speculum Exam - Vagina: normal appearance of the vagina and normal vaginal discharge Speculum Exam - Cervix: normal appearance of the cervix Bimanual Exam- Vagina & Uterus: normal bimanual exam, uterine size normal, uterine shape normaland non-tender Bimanual Exam- Adnexa, other: normal adnexae, no masses, normal and non-tender Pelvic Support: normal Neuro General: patient alert and patient oriented x3 Psych Affect: normal affect Results POC Urine Office , Urine Negative Last Edit by Mirtha Beach on 06/05/25 15:2 8 Coding Level of Care Code Established Pt Off vis,est,prev 18-39yrs Patient Type Established Diagnoses Encounter for routine gynecological examination Z01.419 Breast lump N63.0 Assessment and Plan Assessment and Plan (1) Encounter for routine gynecological examination: Plan: Breast and pelvic exam complete. PAP due: UTD with normal; due 2025 Mammogram due: routine screenings age 40 Advised self breast exams monthly. Contraception: in office test negative; restart xulane patches after HCG quant results return and negative. (has had unprotected sex and would like to confirm negative). Advised incorporating healthy dietary choices such as increase in lean meats, fruits/vegetables, less processed food/sat fat/trans fats. Increase exercise to 30 minutes per day/5 days a week. This can include both weight bearing exercisesand/or brisk walking. Follow up with PCP for further preventative health screenings. 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 Call office sooner with questions or concerns. (2) Breast lump: Status: Acute Comment: axillary Plan: not appreciated on exam today. Will do diagnostic mammogram and ultrasound to ensure negative. Final plan with results. Orders: Orders POC Urine Today Z30.9 - Encounter for contraceptive management, unspecified hCG Titer Quant., Serum Today N91.2 - Amenorrhea, unspecified Breast Limited Unilateral Today N63.0 - Unspecified lump in unspecified breast DIAG MAMM W/CAD, BILAT Today N63.0 - Unspecified lump in unspecified breast 06/05/25 1556 n BERTHA> Date _ Amrita STONE Cosigner Signature: Date (if applicable) CC: ~ [facility]07-17-2025 Progress note Author Amrita Lopez [facility] Note Date/Time June 05, 2025 3:56 pm [facility] [address], [address] [place] [address] OFFICE VISIT Date of Service: 06/05/25 MR#: [id number] Acct: [id number] Name: PANKAJ QUIÑONEZ Rep #: [id number] : 2000 Provider: BERTHA Lopez Age/Sex: 24/F [place] [facility] [place]: Signed Intake Vital Signs 06/21/23 09:29 06/05/25 15:18 06/05/25 15:25 Height 5 ft 5 in 5 ft 5 in 5 ft 5 in Weight: 228 lb 6 oz BMI 38.0 BP 102/78 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: No Is patient in pain?: No Allergies No Known Allergies Allergy (Verified 06/05/25 15:17) Medications ?Medication ?Instructions ?Recorded ?Confirmed ?Type NK 06/05/25 06/05/25 History Is last menstrual period known: No Post menopausal: No Patient : No : No Control Method: none PFSH Family History Father Diabetes Social History (Updated 06/05/25 @ 15:24 by Mirtha Beach) adopted: No number of children: 0 current occupational status: employed 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 She was previouslyon xulane patch; has not had refills due to her pharmacy closing. She is interested in restarting the xulane patient. She has however had unprotected since being off. When she was using the xulane patch her menses were regular--with out the patch is has been irregular. Patient reports breast lump; noticed this a couple weeks ago in right axillary region. Last PAP: 2022; normal. History of abnormal PAP: no Last mammogram: age 40 History of abnormal mammogram: n/a Colon cancer screening: age 45 Other preventative health care screenings: Chelsea Caicedo; PCP Female Reproductive History Last Menstrual Period: 03/26/25 Questions: metorrhagia: No, sexually active: Yes, dyspareunia: No and PCB: No ROS Const Constitutional: Denies chills, fatigue, fever(s), headache(s) or weight loss Eyes Eyes: Denies change in vision ENT ENT: Denies dizziness Resp Resp: Denies cough GI GI: Denies abdominal pain, constipation or nausea : Denies difficulty voiding, dysuria, hematuria, nipple discharge, pelvic pain, prolapse symptoms, urinary incontinence, vaginal discharge, vaginal dryness, vaginal odor or vaginal pruritus Skin Skin/Breast: Denies alopecia, rash, breast mass, breast pain, breast skin changes or nipple discharge Neuro Neuro: Denies dizziness Psych Psych: Denies anxiety or depression Endo Endo: Denies cold intolerance, excessive sweating or heat intolerance Exam Const General: cooperative, healthy appearing, no acute distress and well developed Orientation: alert, oriented to person and oriented to place [facility] Head: normal to inspection Neck Neck: normal visual inspection Thyroid: thyroid normal Lymphatic: no lymphadenopathy noted Chest Breast inspection: normal inspection of the breasts and normal inspection of theaxillae Breast palpation: normal palpation of the breasts, normal palpation of the axillae and no axillary lymphadenopathy Resp Effort & Inspection: normal respiratory effort GI Palpation: soft, no masses and nontender Rectal Exam: deferred External Female Exam: normal external appearance and normal appearance of the urethra Urethra: normal appearance of the urethra and normal palpation Speculum Exam - Vagina: normal appearance of the vagina and normal vaginal discharge Speculum Exam - Cervix: normal appearance of the cervix Bimanual Exam- Vagina & Uterus: normal bimanual exam, uterine size normal, uterine shape normal and non-tender Bimanual Exam- Adnexa, other: normal adnexae, no masses, normal and non-tender Pelvic Support: normal Neuro General: patient alert and patient oriented x3 Psych Affect: normal affect Results POC Urine Office , Urine Negative Last Edit by Mirtha Beach on 06/05/25 15:2 8 Coding Level of Care Code Established Pt Off vis,est,prev 18-39yrs Patient Type Established Diagnoses Encounter for routine gynecological examination Z01.419 Breast lump N63.0 Assessment and Plan Assessment and Plan (1) Encounter for routine gynecological examination: Plan: Breast and pelvic exam complete. PAP due: UTD with normal; due 2025 Mammogram due: routine screenings age 40 Advised self breast exams monthly. Contraception: in office test negative; restart xulane patches after HCG quant results return and negative. (has had unprotected sex and would like to confirm negative). Advised incorporating healthy dietary choices such as increase in lean meats, fruits/vegetables, less processed food/sat fat/trans fats. Increase exercise to 30 minutes per day/5 days a week. This can include both weight bearing exercisesand/or brisk walking. Follow up with PCP for further preventative health screenings. 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 Call office sooner with questions or concerns. (2) Breast lump: Status: Acute Comment: axillary Plan: not appreciated on exam today. Will do diagnostic mammogram and ultrasound to ensure negative. Final plan with results. Orders: Orders POC Urine Today Z30.9 - Encounter for contraceptive management, unspecified hCG Titer Quant., Serum Today N91.2 - Amenorrhea, unspecified Breast Limited Unilateral Today N63.0 - Unspecified lump in unspecified breast DIAG MAMM W/CAD, BILAT Today N63.0 - Unspecified lump in unspecified breast 06/05/25 1556 <Electronically signed by Amrita NAJERAC> Date _ Amrita Lopez NP-C Cosigner Signature: Date (if applicable) CC: ~ [facility] Work Phone: [phone]) 775-749406-19-2025 Evaluation + Plan note* Assessment & Plan Note - Chelsea Burr MD - 05/08/2025 9:50 AM EDTAssociated Problem(s): Current mild episode of major depressive disorder without prior episode Not on medication, to see behavior health [facility] Work Phone: [phone]) 611-545506-19-2025 Miscellaneous Notes* Assessment & Plan Note - Chelsea Burr MD - 05/08/2025 9:50 AM EDTAssociated Problem(s): Current mild episode of major depressive disorder without prior episode Not on medication, to see behavior health * Assessment & Plan Note - Chelsea Burr MD - 05/08/2025 9:49 AM EDT Associated Problem(s): Obesity (BMI 35.0-39.9 without comorbidity) Seen by supervisor seaming , will order glp1. No Fhx of thyroid cancer. [facility] Work Phone: [phone]) 546-133506-19-2025 Evaluation + Plan note* Assessment & Plan Note - Chelsea Burr MD - 05/08/2025 9:49 AM EDTAssociated Problem(s): Obesity (BMI 35.0-39.9 without comorbidity) Seen by supervisor seaming , will order glp1. No Fhx of thyroid cancer. [facility] Work Phone: [phone]) 580-906506-19-2025 History of Present illness Narrative* Chelsea Burr MD - 05/08/2025 9:20 AM EDT Subjective Pankaj Quiñonez is a 24 y.o. female who presents for Follow-up (1 month follow up/Labs ). 1 month follow up depression on/off not on TX , had labs done, was seen by supervisor seaming for wt lossdiet, not seen by behavioral health yet. Labs - Review of Systems Constitutional: Negative for chills, fatigue and unexpected weight change. Comment HENT: Negative for congestion, ear pain and sore throat. Respiratory: Negative for cough, chest tightness, shortness of breath and wheezing. Cardiovascular: Negative for palpitations and leg swelling. Gastrointestinal: Negative for abdominal pain, constipation, diarrhea, nausea and vomiting. Genitourinary: Negative for dysuria and urgency. Musculoskeletal: Negative for arthralgias and joint swelling. Skin: Negative for rash. Neurological: Negative for dizziness and weakness. Hematological: Negative for adenopathy. Psychiatric/Behavioral: Negative for confusion and sleep disturbance. Objective Physical Exam Constitutional: Appearance: Normal appearance. HENT: Head: Normocephalic and atraumatic. Eyes: Pupils: Pupils are equal, round, and reactive to light. Cardiovascular: Rate and Rhythm: Normal rate and regular rhythm. Pulmonary: Effort: Pulmonary effort is normal. Breath sounds: Normal breath sounds. Musculoskeletal: General: Normal range of motion. Cervical back: Normal range of motion and neck supple. Skin: General: Skin is warm. Neurological: General: No focal deficit present. Mental Status: She is alert and oriented to person, place, and time. Psychiatric: Mood and Affect: Mood normal. Behavior: Behavior normal. BP 120/66 (BP Location: Left arm, Patient Position: Sitting) Temp 36.3 C (97.3 F) Resp 16 Ht 1.702 m (5' 7.01) Wt 104 kg (228 lb 3.2 oz) LMP 03/25/2025 Comment: patient had a inhome prenancy test last night, states was negative SpO2 98% BMI 35.73 kg/m Assessment/Plan Problem List Items Addressed This Visit Obesity (BMI 35.0-39.9 without comorbidity) - Primary Seen by supervisor seaming , will order glp1. No Fhx of thyroid cancer. Relevant Medications tirzepatide, weight loss, (Zepbound) 2.5 mg/0.5 mL injection Other Relevant Orders Insulin, Fasting Current mild episode of major depressive disorder without prior episode Not on medication, to see behavior health Abnormal cortisol level Relevant Orders Cortisol Lipid Panel Vitamin D deficiency Relevant Medications ergocalciferol (Vitamin D-2) 1250 mcg (50,000 units) capsule [facility] Work Phone: [phone] 165-461706-19-2025 Instructions* Patient Instructions* Chelsea Burr MD - 05/08/2025 9:20 AM EDT Was nice seeing you today. Continue same medication. Have lab work done before next appointment if labs were ordered today. Fu in 3 month. Call/ contact our office with any concerns. If you have labs or test done and you can't see the report in your chart or you didn't hear from usin 2 weeks after test/labs done , please, call our office for reports. Please , do not assume that they were normal. Any test results and questions you might have , will be discussed at next visit -- please make sureto make a follow up appt after testing if reports are abnormal or you have questions. documented in this [facility] Work Phone: [phone]) 851-162305-21-2025 History of Present illness Narrative* Chelsea Burr MD - 04/09/2025 9:00 AM EDT Subjective Pankaj Quiñonez is a 24 y.o. female who presents for Establish Care (RETAIL ZONE SPECIALIST -establish care ) and Annual Exam (CPE). 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 Review of Systems Constitutional: Positive for fatigue. Negative for chills and unexpected weight change. Sometimes HENT: Negative for congestion, ear pain and sore throat. Respiratory: Negative for cough, chest tightness, shortness of breath and wheezing. Cardiovascular: Negative for palpitations and leg swelling. Gastrointestinal: Positive for constipation and diarrhea. Negative for abdominal pain, nausea and vomiting. Sometimes Genitourinary: Negative for dysuria and urgency. Musculoskeletal: Negative for arthralgias and joint swelling. Skin: Negative for rash. Neurological: Negative for dizziness and weakness. Hematological: Negative for adenopathy. Psychiatric/Behavioral: Negative for confusion and sleep disturbance. The patient is nervous/anxious. All other systems reviewed and are negative. Objective Physical Exam Constitutional: Appearance: Normal appearance. Comments: obese HENT: Head: Normocephalic and atraumatic. Eyes: Conjunctiva/sclera: Conjunctivae normal. Neck: Vascular: No carotid bruit. Cardiovascular: Rate and Rhythm: Normal rate and regular rhythm. Heart sounds: No murmur heard. Pulmonary: Effort: No respiratory distress. Breath sounds: No wheezing, rhonchi or rales. Chest: Chest wall: No tenderness. Abdominal: General: Bowel sounds are normal. There is no distension. Palpations: Abdomen is soft. There is no mass. Tenderness: There is no abdominal tenderness. Musculoskeletal: General: Normal range of motion. Cervical back: Neck supple. Lymphadenopathy: Cervical: No cervical adenopathy. Skin: Coloration: Skin is not jaundiced. Findings: No rash. Neurological: General: No focal deficit present. Mental Status: She is alert and oriented to person, place, and time. Mental status is at baseline. Motor: No weakness. Gait: Gait normal. Psychiatric: Mood and Affect: Mood normal. Behavior: Behavior normal. Judgment: Judgment normal. BP 110/64 (BP Location: Left arm, Patient Position: Sitting) Pulse 84 Temp 36.1 C (97 F) Resp18 Ht 1.702 m (5' 7) Wt 104 kg (230 lb 3.2 oz) LMP 03/25/2025 SpO2 98% BMI 36.05 kg/m Assessment/Plan Problem List Items Addressed This Visit Obesity (BMI 35.0-39.9 without comorbidity) Relevant Orders Referral to Nutrition Services Insulin, Fasting Anxiety Current mild episode of major depressive disorder without prior episode - Primary Relevant Orders Cortisol Vitamin D 25-Hydroxy,Total (for eval of Vitamin D levels) Microscopic Only, Urine Tsh With Reflex To Free T4 If Abnormal Basic metabolic panel CBC Comprehensive metabolic panel Folate TSH Vitamin B12 level Follow Up In [facility] CoC Annual physical exam Relevant Orders Lipid Panel [facility] Work Phone: [phone]) 565-516405-21-2025 Instructions* Patient Instructions* Chelsea Burr MD - 04/09/2025 9:00 AM EDT Was nice seeing you today. Continue same medication. Have lab work done before next appointment if labs were ordered today. Fu in 1 month. Call/ contact our office with any concerns. If you have labs or test done and you can't see the report in your chart or you didn't hear from usin 2 weeks after test/labs done , please, call our office for reports. Please , do not assume that they were normal. Any test results and questions you might have , will be discussed at next visit -- please make sureto make a follow up appt after testing if reports are abnormal or you have questions. documented in this [facility] Work Phone: [phone]) 643-792908-02-2023 NotePap Smear Specimen AdequacyAugust 2022 11:19amComment.Satisfactory for evaluation. Endocervical and/or squamous metaplasticcells (endocervical component)are present.[facility] INTERFACED A#[id number] Hardin Memorial HospitalComment on above:Satisfactory for evaluation. Endocervical and/or squamous metaplasticcells (endocervical component)are present.05-01-2020 NotePankaj Quiñonez V is a 19 y.o. female patient. Procedures Electronically signed by: Debby Delvalle APRN-PAULINAPatient ID: Pankaj Quiñonez V is a 19 y.o. female. Her chief complaint(s) include: 19 YEAR WELL CHILD Assessment 1. Routine general medical examination at a health care facility Plan Pankaj was seen today for 19 year well child. Diagnoses and all orders for this visit: Routine general medical examination at a health care facility - Hearing Screening - Vision Screening - Cancel: Behavioral/Emotional Assessment w Score - PHQ 9 Return in about 1 year (around 05/01/2021) for well check. 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 [place] campus She is accompanied by her mother. 19 YEAR WELL CHILD Home: Pankaj has an adult to turn to for help, is permitted and able to make independent decisions and lives apart from family. Education: Pankaj is in sophomore year of college and is doing well. Eating: Pankaj eats regular meals including fruits and vegetables, eats breakfast and has a calcium source. (Vegetarian, eats a lot of beans and nuts). Activities & Sports: Pankaj has a job and has drivers license. Drugs: Pankaj does not use tobacco, does not use drugs, does not use alcohol and does not vape. Safety: Pankaj uses seat belt. Sex: The patient has a sexual partner. The patient is interested in males. Typically, the patient uses implant as current contraceptive method. The patient has not had an STD. STD screening offered and declined. Pankaj has previously been : No Suicidality: Pankaj has ways to cope with stress, displays self-confidence and has anxiety. Pankaj has no depression and has no suicidal ideation. Menstruation Menstruation: regular periods Output Urine and Stool Pattern: Urine and Stool Pattern: Normal stool pattern, normal urine pattern. Stool Consistency: soft Sleep Sleeping Difficulty: no difficulty sleeping Teen Anticipatory Guidance The following anticipatory guidance was reviewed during the visit: Safety: home safety. Health: age appropriate dental care. Screenings Previous Vaccine Reactions: No. Life events information was reviewed-no referral needed Hearing Vision Concerns: The caregiver has no concerns about the patient's hearing. The caregiver has no concerns about the patient's vision. Primary Care Review of Systems Objective Vital Signs 05/01/20 0957 BP: 133/82 Pulse: 71 Weight: 73.8 kg Height: 170.5 cm Body mass index is 25.39 kg/m . Physical Exam Constitutional: She appears well. She is active. No distress. HENT: Head: Atraumatic. Ears: Right Ear: Tympanic membrane and external ear normal. Left Ear: Tympanic membrane and external ear normal. Nose: Nose normal. Mouth/Throat: Mucous membranes are moist. Dentition is normal. Oropharynx is clear. Eyes: Conjunctivae and EOM are normal. No strabismus. Pupils are equal, round, and reactive to light. Neck: Normal range of motion. Neck supple. Thyroid normal. Cardiovascular: Normal rate, regular rhythm, S1 normal and S2 normal. Pulses are palpable. Heart murmur not heard. Pulmonary/Chest: Breath sounds normal. No respiratory distress. Exhibits no deformity. Abdominal: Soft. Bowel sounds are normal. She exhibits no distension and no mass. There is no hepatosplenomegaly. There is no abdominal tenderness. Musculoskeletal: Normal range of motion. Back: She exhibits no scoliosis. Neurological: She is alert. She has normal strength. She exhibits normal muscle tone. Gait normal. Skin: Skin is warm and not pale. Findings: No rash. Vitals reviewed: Blood pressure 133/82, pulse 71, height 170.5 cm, weight 73.8 kg, last menstrual period 03/01/2020.[facility] Center[facility]* Diagnosis Onset Date Resolution Status Possible exposure to STD non eactive Encounter for routine gynecological examination noneactive Vaginal odor noneactive Pap smear for cervical cancer screening noneactive [facility] Work Phone: Evaluation note* Diagnosis Current mild episode of major depressive disorder without prior episode- Primary Anxiety and depression Obesity (BMI 35.0-39.9 without comorbidity) Anxiety Anxiety state, unspecified Annual physical exam Routine general medical examination at a health care facility documented in this encounter [facility] Work Phone: Evaluation note* Diagnosis Obesity (BMI 35.0-39.9 without comorbidity)- Primary Vitamin D deficiency Current mild episode of major depressive disorder without prior episode Abnormal cortisol level documented in this encounter [facility] Work Phone: Evaluation note* Diagnosis Onset Date Resolution Status Admit Date Breast lump acute June 05 3:16pm Encounter for routine gynecological examination noneactive May 202024 3:16pm [facility] Work Phone: Reason for referral (narrative)No reason for referral information availableKaiser [facility] Center Work Phone: Summary Purpose Family History No Family History Records Found Relationship Condition Age at Onset Recorded Date/T tanisha father Diabetes mellitus Unknown Advance Directives No Advanced Directives Records FoundHealthcare Agents on File Name Relationship Healthcare Agent Relationship Communication Stevie [place] Significant Other Health Care Agent Healthcare Agents on File Name Relationship Healthcare Agent Relationship Communication Stevie Dread Significant Other Health Care Agent Chief Complaint and Reason for Visit 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) Reason for 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 Possible exposure to STD Encounter for routine gynecological examination Vaginal odor Pap smear for cervical cancer screening Chief Complaint Admit Date 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) June 05, 2025 3:16 pm Reason for Visit Admit Date Breast lump June 05, 2025 3:16 pm Encounter for routine gynecological exam ination June 05, 2025 3:16pm Additional Source Comments INFORMATION SOURCE (unrecogn ized section and content) DATE CREATED AUTHOR 05/24/2018 [facility] DATE CREATED AUTHOR AUTHOR'S ORGANIZ ATION 03/17/2021 [facility] DATE CREATED AUTHOR AUTHOR'S ORGANIZ ATION 06/09/2023 [facility] DATE CREATED AUTHOR AUTHOR'S ORGANIZ ATION 05/11/2025 [facility] DATE CREATED AUTHOR AUTHOR'S ORGANIZ ATION 06/28/2025 [facility] Care Teams (unrecognized sec tion and content) Team Status: Active Member Role Status Dates Rico Peña Family Provider Active Dr. Rahul Pickett MD Primary Care Provider Active Team Status: Inactive Member Role Status Dates Dr. Rahul Pickett MD Primary Care Provider, Referrin g Provider Active Loni Alejandro RETAIL ZONE SPECIALIST, RETAIL ZONE SPECIALIST-C Attending Provider Active Team Status: Inactive Member Role Status Dates Dr. Rahul Pickett MD Primary Care Provider Active Loni Alejandro RETAIL ZONE SPECIALIST, RETAIL ZONE SPECIALIST-C Attending Provider, Referring Provider Active Dr. Salma Freire MD Other Provider Active Briquetting Machine Operator Relationship Specialty [place] [address] [place] [address] PCP - General Internal Medicine 04/09/25 Briquetting Machine Operator Relationship Specialty [place] [address] [place] [address] PCP - General Internal Medicine 04/09/25 Team Status: Active Member Role/Relationship Status Dates Rico Peña Family Provider Active Dr. Rahul Pickett MD Primary Care Provider Active Team Status: Inactive Member Role/Relationship Status Dates Dr. Rahul Pickett MD Primary Care Provider Active Start: June 05, 2025 End: June 05, 2025 Dr. Rahul Pickett MD Referring Provider Active Start: June 05, 2025 End: June 05, 2025 Amrita Lopez NP-C Attending Provider Active Start: June 05, 2025 End: June 05, 2025 Team Status: Active Member Role/Relationship Status Dates Dr. Rahul Pickett MD Primary Care Provider Active Start: June 05, 2025 BERTHA Finley Attending Provider Active Start: June 05, 2025 Team Status: Active Member Role/Relationship Status Dates Out of [facility] Doctor Primary Care Provider Active Team Status: Inactive Member Role/Relationship Status Dates Dr. Rahul Pickett MD Primary Care Provider Active Start: June 05, 2025 End: June 05, 2025 BERTHA Finley Attending Provider Active Start: June 05, 2025 End: June 05, 2025 Goals (unrecognized section and content) Goals may be documented in a n alternate sectionGoals may be documented in an alternate sectionGoals may be documented in an alternate section Reason for Visit (unrecogniz ed section and content) Reason Comments Establish Care RETAIL ZONE SPECIALIST -establish care Annual Exam CPE Reason Comments Follow-up 1 month follow upLab s 5 FOR RECORDS PERTAINING TO PATIENTS WHO ARE OR HAVE BEEN ENROLLED IN A CHEMICAL DEPENDENCY/SUBSTANCEABUSE PROGRAM, SOME INFORMATION MAY BE OMITTED. This clinical summary was aggregated from multiple sources. Caution should be exercised in using it in the provision of clinical care. This summary normalizes information from multiple sources, and as a consequence, information in this document may materially change the coding, format and clinical context of patient data. In addition, data may be omitted in some cases. CLINICAL DECISIONS SHOULD BE BASED ON THE PRIMARY CLINICAL RECORDS. [facility] [employer] provides no warranty or guarantee of the accuracy or completeness of information in this document.
== END | disposition home or self-care (01) ==
PROVIDERS: PCP Internal Medicine; Referring Provider Nurse Practitioner Family; Visit Provider Nurse Practitioner Family
DX: N63.0 Unspecified lump in unspecified breast (principal)
CPT/HCPCS: 76882